=== PATIENT | female | born 1950 | race Caucasian/White ===

== ENCOUNTER 2023-12-12 04:06 | Emergency (ER) | payer MEDICARE, BC ==
[~2023-12-12] VITALS: Ht 177.8 cm; Wt 104.3 kg
[2023-12-12] MEDS ORDERED: FAMOTIDINE/PF INJ 20 MG/2 ML VIAL IV ONE (04:22)
[2023-12-12] MEDS ORDERED: diphenhydrAMINE HCL 50 MG/ML VIAL ONE (04:22)
[2023-12-12] MEDS ORDERED: methylPREDNISolone SOD SUCC 125 MG/2ML VIAL ONE (04:22)
[2023-12-12 04:42] LABS: BASOPHILS % (AUTO) 0.3 % (0.0-2.0); EOSINOPHILS # (AUTO) 0.1 K/uL (0.0-0.7); EOSINOPHILS % (AUTO) 0.9 % (0.0-6.0); HEMATOCRIT 44 % (33-45); HEMOGLOBIN 14.9 g/dL (11.5-14.8); LYMPHOCYTES # (AUTO) 1.3 K/uL (0.8-4.8); LYMPHOCYTES % (AUTO) 16.7 % (20.0-44.0); MEAN CORPUSCULAR HEMOGLOBIN 31 PG (26.0-33.0); MEAN CORPUSCULAR HGB CONC 34 g/dl (31.0-36.0); MEAN CORPUSCULAR VOLUME 90 fL (82-100); MONOCYTES # (AUTO) 0.4 K/uL (0.1-1.30); MONOCYTES % (AUTO) 5.3 % (2.0-12.0); NEUTROPHILS # (AUTO) 5.8 K/uL (1.8-8.9); NEUTROPHILS % (AUTO) 76.8 % (43.0-81.0); PLATELET COUNT (AUTO) 322 K/uL (150-450); RED BLOOD CELL COUNT(AUTO) 4.86 MIL/uL (4.0-5.2); RED CELL DISTRIBUTION WIDTH 13.8 % (11.5-15.0); WHITE BLOOD COUNT (AUTO) 7.6 K/uL (4.3-11.0)
[2023-12-12] MEDS: diphenhydrAMINE HCL 50 MG/ML VIAL IV ONE (04:42)
[2023-12-12] MEDS: methylPREDNISolone SOD SUCC 125 MG/2ML VIAL IV ONE (04:42)
[2023-12-12] MEDS: FAMOTIDINE/PF INJ 20 MG/2 ML VIAL IV ONE (04:42)
[2023-12-12 04:50] VITALS: TEMP 98
[2023-12-12 04:55] LABS: ALANINE AMINOTRANSFERASE 23 U/L (12-78); ALBUMIN 3.2 g/dL (3.4-5.0); ALKALINE PHOSPHATASE 101 U/L (46-116); ASPARTATE AMINOTRANSFERASE 13 U/L (15-37); BILIRUBIN,TOTAL 0.2 mg/dL (0.2-1.0); CALCIUM, SERUM 8.6 mg/dL (8.5-10.1); CARBON DIOXIDE 22 mmol/L (21-32); CHLORIDE 106 mmol/L (98-107); GLUCOSE 104 mg/dL (74-106); POTASSIUM 3.9 mmol/L (3.5-5.1); SODIUM SERUM 139 mmol/L (136-145); TOTAL PROTEIN, SERUM 6.6 g/dL (6.4-8.2); UREA NITROGEN, BLOOD 20 mg/dL (7-18)
[2023-12-12] MEDS ORDERED: PRED20TA PO (05:17)
[2023-12-12] MEDS ORDERED: DIPH50CA4 PO (05:17)
[2023-12-12 05:42] VITALS: BP 129/77; O2SAT 98
== END 2023-12-12 05:42 | disposition home or self-care (01) ==
LOC: ER 04:08
DX: L50.0 Allergic urticaria (principal); L29.9 Pruritus, unspecified; Z86.79 Personal history of other diseases of the circulatory system; Z85.3 Personal history of malignant neoplasm of breast; Z88.1 Allergy status to other antibiotic agents; Z60.2 Problems related to living alone
CPT/HCPCS: 99284; 96374; 96375 ×2; 85025; 36415; 80053; J1200; J3490; J2919